=== PATIENT | female | born 1975 | race Hispanic/Latino ===

== ENCOUNTER → 2018-09-05 | Outpatient (CLI) | payer BC ==
[~2018-09-05] MED LIST: DOCU240C80 PO; HYDR-2132 PO; MO8B PO; PREN1TAB80 PO; RANI-248 PO
== END | disposition home or self-care (01) ==
LOC: RAH 14:56
PROVIDERS: ATTEND Specialist
DX: Z12.31 Encounter for screening mammogram for malignant neoplasm of breast (principal)
CPT/HCPCS: 77067

== ENCOUNTER 2019-07-22 09:09 | Emergency (ER) | payer BC ==
[~2019-07-22 09:09] MED LIST changes: +IBUP-1493 PO; -MO8B PO; -RANI-248 PO; +RANI-662 PO
[2019-07-22] MEDS ORDERED: KETOROLAC TROMETHAMINE 30MG/ML ONE (09:29)
== END 2019-07-22 10:01 | disposition home or self-care (01) ==
LOC: EDH 09:09
DX: M54.2 Cervicalgia (principal); M54.6 Pain in thoracic spine; Z98.890 Other specified postprocedural states; V49.49XA Driver injured in collision with other motor vehicles in traffic accident, initial encounter; Y93.89 Activity, other specified; Y92.89 Other specified places as the place of occurrence of the external cause; Y99.8 Other external cause status
CPT/HCPCS: 72040; 96372; 99284; J1885

== ENCOUNTER → 2019-09-09 | Outpatient (CLI) | payer BC | END | disposition home or self-care (01) | LOC: RAH 15:36 | PROVIDERS: ATTEND Specialist | DX: Z12.31 Encounter for screening mammogram for malignant neoplasm of breast (principal) | CPT/HCPCS: 77067 ==

== ENCOUNTER → 2020-09-12 | Outpatient (CLI) | payer BC | END | disposition home or self-care (01) | LOC: RAH 10:10 | PROVIDERS: ATTEND Specialist | DX: Z12.31 Encounter for screening mammogram for malignant neoplasm of breast (principal); N64.89 Other specified disorders of breast | CPT/HCPCS: 77067 ==

== ENCOUNTER → 2022-09-14 | Outpatient (CLI) | payer BC ==
[~2022-09-14] MED LIST changes: +CETI10CA5 PO; -DOCU240C80 PO; +ESCI10TA PO; +FAMO-136 PO; -HYDR-2132 PO; -PREN1TAB80 PO; -RANI-662 PO
== END | disposition home or self-care (01) ==
LOC: RAH 10:27
PROVIDERS: ATTEND Obstetrics & Gynecology
DX: Z12.31 Encounter for screening mammogram for malignant neoplasm of breast (principal)
CPT/HCPCS: 77067

== ENCOUNTER → 2023-09-27 | Outpatient (CLI) | payer BC | END | disposition home or self-care (01) | LOC: RAH 14:07 | PROVIDERS: ATTEND Obstetrics & Gynecology | DX: Z12.31 Encounter for screening mammogram for malignant neoplasm of breast (principal) | CPT/HCPCS: 77067 ==

== ENCOUNTER → 2024-10-23 | Outpatient (CLI) | payer BC ==
--- NOTE | 2024-10-23 11:25 | HMCIMG ---
MAMMO SCREENING BILATERAL HISTORY: Screening mammogram. COMPARISON: 09/27/2023 TECHNIQUE: Bilateral screening mammogram with CAD was performed with craniocaudal and mediolateral oblique projections. FINDINGS: There are scattered areas of fibroglandular density. There is no evidence of a dominant mass, or suspicious microcalcification. There is no evidence of nipple retraction or skin thickening. IMPRESSION: 1. Stable mammogram. Patient was entered into a reminder system with a target due date for their next mammogram. BI-RADS: CATEGORY 2: BENIGN FINDINGS Recommend monthly self breast exam as well as annual clinical examination. A negative x-ray should not delay biopsy if a dominant or clinically suspicious mass is present, since 8-10% of cancers are not identified by mammography. Dense breasts particularly, may obscure an underlying neoplasm. Some of these may be detected clinically and therefore, clinical examination is an essential part of breast evaluation.
== END | disposition home or self-care (01) ==
LOC: RAH 10:41
PROVIDERS: ATTEND Obstetrics & Gynecology
DX: Z12.31 Encounter for screening mammogram for malignant neoplasm of breast (principal); R92.30 Dense breasts, unspecified
CPT/HCPCS: 77067